=== PATIENT | male | born 1990 | race Caucasian/White ===

== ENCOUNTER → 2020-08-11 10:39 | Outpatient (CLI) | payer OTHER, SELFPAY ==
[2020-08-11 07:14] VITALS: BMI 33.7
== END ==
PROVIDERS: PCP Family Medicine; Referring Provider Physician Assistant Surgical; Visit Provider Physician Assistant Surgical
DX: Z20.828 Contact with and (suspected) exposure to other viral communicable diseases (principal)
CPT/HCPCS: 87635; C9803; U0003